=== PATIENT | male | born 1945 | race Hispanic/Latino ===

== ENCOUNTER 2019-03-18 08:42 | Day surgery (SDC) | payer OTHER ==
[2019-03-18] MEDS ORDERED: SODIUM CHLORIDE 0.9% 1000 ML 1,000 ML IV SCH (10:00)
[2019-03-18] MEDS ORDERED: LIDOCAINE MPF (2%) 20 MG/1 ML VIAL 5 ML ONE (11:00)
[2019-03-18] MEDS ORDERED: WATER FOR IRRIG STERILE 250 ML BOTTLE IR ONE (11:04)
--- NOTE | 2019-03-18 11:11 | Anesthesia Consultation ---
Anesthesia Consult and Med Hx Date of service: 03/18/19 - Airway Anesthetic Teeth Evaluation: Poor ROM Head & Neck: Adequate Mental/Hyoid Distance: Adequate Mallampati Class: Class II - Pulmonary Exam CTA: Yes - Cardiac Exam Cardiac Exam: RRR - Pre-Operative Health Status ASA Pre-Surgery Classification: ASA2 Proposed Anesthetic Plan: MAC - Pulmonary Hx Smoking: Yes (1/2 pack a day for more than 50 years) Hx Asthma: No Hx Respiratory Symptoms: No SOB: No COPD: No Hx Sleep Apnea: No - Cardiovascular System Hx Hypertension: No - Central Nervous System Hx Neuromuscular Disorder: No Hx Seizures: No - Gastrointestinal Hx Ulcer: No Hx Gastroesophageal Reflux Disease: Yes - Endocrine Hx Renal Disease: Yes Hx Cirrhosis: No Hx Liver Disease: No - Other Systems Hx Substance Use: No Hx Cancer: No - Additional Comments Anesthesia Medical History Comments: ano previous anesthesia complications
--- NOTE | 2019-03-18 11:13 | Anesthesia Day of Surgery ---
Anesthesia Day of Surgery - Day of Surgery Patient Examined: Yes Patient H&P Reviewed: Yes Patient is NPO: Yes
[2019-03-18] MEDS ORDERED: PROPOFOL 200 MG/20 ML VIAL IV ONE ×2 (11:16)
--- NOTE | 2019-03-18 12:05 | Procedure Note ---
Date of procedure: 03/18/19 Pre-op diagnosis: Colon Polyp Screening/ F/H/O Colon Cancer (mother) Post-op diagnosis: other (multiple,Ascending colon Polyps (removed by snare excision and cold biopsy)/ Mild to Moderate Internal Hemorrhoid/ No Diverticular Disease noted) Procedure: Colonoscopy and Snare Polypectomy and Cold Biopsy [place]est[place]: [facility] [place] Surgeon: BELLE BALDERAS Estimated blood loss: minimal Pathology: list Specimen disposition: to lab Condition: stable Disposition: same day (Avoid aspirin and NSAID for 4 days; otherwise resume home medication and follow up in 1 to 2 weeks ([phone]).)
--- NOTE | 2019-03-18 12:16 | Operative Report ---
PROCEDURE: Colonoscopy with snare polypectomy and cold biopsy. INDICATIONS: This is a 73-year-old white male with a family history of colon cancer, the patient's mother had colon cancer. He states that he had a colonoscopy done a little over a year ago and was noted to have multiple polyps and was advised to have a repeat colonoscopy done in a year's time. The procedure was done after getting informed consent with MAC anesthesia. Initial rectal exam was unremarkable. Instrument was passed with some degree of difficulty since the patient had a tortuous colon to the cecum, which was identified with ileocecal valve and the appendiceal orifice. Visualization was fair to good. In the ascending colon, there were multiple polyps noted, 2 removed by cold snare polypectomy and one with application of heat. These varied in size from 9 to 11 mm in diameter. In addition, there were several smaller polyps about 7-8 mm in diameter that were removed by cold biopsy. There was a total of about 6 polyps that were removed, 3 that were moderately large and 3-4 that were small. There was minimal bleeding associated with the polypectomy. The remaining part of the transverse colon, the left colon, which included the descending and the sigmoid showed normal mucosa. There was no evidence of any diverticular disease and the rectum showed mild to moderate internal hemorrhoid on the retroverted view. ASSESSMENT: Screening colonoscopy, family history of colon cancer, the patient's mother had colon cancer, multiple ascending colon polyps. Mild to moderate internal hemorrhoids. No diverticula. Again, there was minimal bleeding associated with the procedure. No complications associated with the procedure. The patient will be asked to avoid aspirin and aspirin-related products for the next few days. Resume home medication. Otherwise, follow up in the office in 1-2 weeks' time. Patient's procedure was done in the GI lab with assistance of the GI lab team, which included RN, Kiya Houston and sunshine Wu and with assistance of anesthesia. The patient will be asked to follow up in 1-2 weeks' time. JOB# [id number] NURIA/ROSAURA
[2019-03-18 12:41] VITALS: BP 112/73
--- NOTE | 2019-03-18 23:11 | Post Anesthesia Evaluation ---
- Post Anesthesia Evaluation Patient Participated: Yes Airway Patent: Yes Stable Respiratory Function: Yes Nausea/Vomiting: No Temp > 96.8F: Yes Pain Manageable: Yes Adequeate Hydration: Yes Anesthesia Complications: No Block Receding Appropriately: Not Applicable Patient on Ventilator: No
== END 2019-03-18 08:43 | disposition home or self-care (01) ==
LOC: GIO 08:42
DX: Z12.11 Encounter for screening for malignant neoplasm of colon (principal); D12.2 Benign neoplasm of ascending colon; K64.8 Other hemorrhoids; K21.9 Gastro-esophageal reflux disease without esophagitis; F17.210 Nicotine dependence, cigarettes, uncomplicated; N28.89 Other specified disorders of kidney and ureter; Z80.0 Family history of malignant neoplasm of digestive organs
CPT/HCPCS: 45380; 45385; 88305; J2704; J7030